=== PATIENT | male | born 1960 | race Caucasian/White ===

== ENCOUNTER 2019-01-13 00:50 | Outpatient (CLI) | payer MEDICAID, SELFPAY ==
--- NOTE | 2019-01-13 14:58 | DI.MRI_ITS ---
EXAM: MR LUMBAR SPINE WO CLINICAL HISTORY: DORSALGIA M54.9. TECHNIQUE: Multiplanar multisequence MRI was performed. COMPARISON: No exams were available for comparison FINDINGS: The T12 L1 disc appears intact. There is a nerve root sheath cyst seen on the right side at T11-12. There is minimal bulging and partial disc desiccation of the L1-2 disc. There is mild concentric bulging of the L2-3 disc, which shows mild loss of height. There are mild f acet degenerative changes, combining to produce mild central canal stenosis and mild bilateral neural foraminal narrowing. At L3-4, there is marked narrowing of the disc space eccentric toward the right with endplate osteoph ytes and degenerative signal changes in the endplates. There are mild facet joint degenerative evans es, which combine with the disc osteophytes to produce moderate bilateral neural foraminal narrowing. At L4-5, there is marked loss of disc height and small endplate osteophytes and mild concentric disc bulging. There are moderate facet degenerative changes and ligamentous hypertrophy, which combine to produce mild central canal stenosis with bilateral neural foraminal narrowing. At L5-S1, there is marked loss of disc height eccentric toward the left. There is a tiny right parac entral disc protrusion without definite impingement on nerve roots. There are facet degenerative arianne nges, also greater on the left side, causing moderate to severe bilateral neural foraminal narrowing. There is no significant central canal stenosis. The conus medullaris appears intact. The aorta is normal in diameter. There is some red marrow sumit nversion. IMPRESSION: Degenerative disc changes and facet degenerative changes combine to produce mild central canal stenos is at L2-3 and L4-5. Bilateral neural foraminal narrowing is seen at multiple levels, greatest at L5 -S1. A tiny focal right paracentral disc protrusion is seen at L5-S1 without definite nerve root imp ingement.
== END 2019-01-13 01:10 ==
PROVIDERS: PCP General Practice; Visit Provider General Practice
DX: M54.5 Low back pain (principal); M51.37 Other intervertebral disc degeneration, lumbosacral region; M48.07 Spinal stenosis, lumbosacral region
CPT/HCPCS: 72148

== ENCOUNTER 2019-11-29 03:36 | Observation (INO) | payer MEDICAID, SELFPAY ==
[2019-11-29] VITALS (39 sets, daily range): BP systolic 117–157; BP diastolic 79–103; PULSE 76–103; RESP 11–23; TEMP 35.8–36.8; O2SAT 89–98
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
--- NOTE | 2019-11-29 04:00 | DI.RAD_ITS ---
EXAM: XR PORTABLE CHEST AP CLINICAL HISTORY: cough TECHNIQUE: 2D digital imaging was performed. COMPARISON: CR CHEST 2 VIEWS PA,LAT from 03/18/2016 FINDINGS: LUNGS: Clear. No pleural abnormality seen. HEART: Normal. MEDIASTINUM: Normal. OTHER FINDINGS: None. IMPRESSION: No acute pulmonary findings. DATA REPOSITORY: RADIATION DOSE DELIVERED:
[2019-11-29] MEDS: LORazepam 2 MG/ML VIAL 0.5 MG IVP ×2 (04:32→05:07)
[2019-11-29] MEDS: Dexamethasone 4 MG/ML VIAL IVP (04:33)
[2019-11-29 04:34] LABS: Abs Immature Grans 0.09 10^3/uL (0.0-0.06); Absolute Basophil Count 0.05 10^3/uL (0.0-0.2); Absolute Eosinophil Count 0.05 10^3/uL (0.0-0.7); Absolute Lymphocyte Count 1.79 10^3/uL (1.2-3.4); Basophils % 0.4; Eosinophils % 0.4; HCT 44.1 % (40.0-50.0); HGB 15.9 g/dL (13.5-17.5); Immature Grans % 0.8; Lymphocytes % 15.8; MCH 36.1 pg (27.0-33.0); MCHC 36.1 % (32.0-36.0); MPV 11.2 fL (8.0-11.0); Monocytes % 10.9; Neutrophils % 71.7; Nucleated RBC 0 %; Platelet Count 227 10^3/uL (130-400); RBC 4.41 10^6/uL (4.36-5.78); RDW 11.2 % (11.8-14.1); RDW-SD 41.1 fL; WBC 11.33 10^3/uL (4.4-10.8)
[2019-11-29 04:42] LABS: Anion Gap 15.2 mmol/L (3-11); BUN 10 mg/dL (7-18); CO2 21.8 mmol/L (21.0-32.0); CREATININE 0.91 mg/dL (0.70-1.30); Chloride 93 mmol/L (98-107); Glucose 128 mg/dL (74-106); Potassium 3.7 mmol/L (3.5-5.1); Sodium 130 mmol/L (136-145)
[2019-11-29 04:43] LABS: Absolute Monocyte Count 1.23 10^3/uL (0.1-0.8); Absolute Neutrophil Count 8.12 10^3/uL (1.2-6.7)
--- NOTE | 2019-11-29 04:46 | DI.VRAD_ITS ---
PROCEDURE INFORMATION: Exam: XR Chest, 1 View Exam date and time: 11/29/2019 4:28 AM Age: 59 years old Clinical indication: Cough TECHNIQUE: Imaging protocol: XR of the chest Views: 1 view. COMPARISON: CR CHEST 2 VIEWS PA,LAT 03/18/2016 10:14 AM FINDINGS: Lungs: Lungs well inflated. No consolidation. Pleural space: Unremarkable. No pleural effusion. No pneumothorax. Heart/Mediastinum: Unremarkable. No cardiomegaly. Bones/joints: Prior cervical spine surgery. IMPRESSION: No acute findings. Dictated and Authenticated by: Dion Terrell MD. Ordering:BELLA Rust MD
--- NOTE | 2019-11-29 04:53 | NUR.NOTE ---
Nursing Note: Patient reports woke up with right tongue swelling. Called contact lens assistant physician and was instructed to come to ER if there was difficulty swallowing. Patient reports has been vomiting due to build up of phlegm aggravating throat.
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
[2019-11-29 05:52] LABS: TSH (W/Ref FT4) 2.33 uIU/mL (0.36-3.74)
--- NOTE | 2019-11-29 08:12 | W.PM.PROGNOT ---
Subjective Subjective Interval history since last seen: no n/v since last night. Voice is still slightly different. A&Ox3, anxious. Pupiles are reacting. 88% when dosing off (?real). No UOP yet. Feels better. Objective Last Vital Signs Temp 36.1 C L 11/29/19 06:04 Pulse 94 H 11/29/19 06:04 Resp 17 11/29/19 06:04 BP 150/96 H 11/29/19 06:04 Pulse Ox 95 11/29/19 06:04 Laboratory Results - last 24 hr 11/29/19 11/29/19 11/29/19 04:20 04:20 04:20 WBC 11.33 H RBC 4.41 Hgb 15.9 Hct 44.1 MCV 100.0 H MCH 36.1 H MCHC 36.1 H RDW 11.2 L Plt Count 227 MPV 11.2 H Immature Gran % 0.8 Neutrophils % 71.7 Lymphocytes % 15.8 Monocytes % 10.9 Eosinophils % 0.4 Basophils % 0.4 Nucleated RBC % 0 Absolute Neutrophils 8.12 H Absolute Lymphocytes 1.79 Absolute Monocytes 1.23 H Absolute Eosinophils 0.05 Absolute Basophils 0.05 Sodium 130 L Potassium 3.7 Chloride 93 L Carbon Dioxide 21.8 Anion Gap 15.2 H BUN 10 Creatinine 0.91 Estimated GFR/1.73 m2 >= 60.00 Glucose 128 H Calcium 9.0 TSH 2.33 Ethyl Alcohol 11/29/19 04:20 WBC RBC Hgb Hct MCV MCH MCHC RDW Plt Count MPV Immature Gran % Neutrophils % Lymphocytes % Monocytes % Eosinophils % Basophils % Nucleated RBC % Absolute Neutrophils Absolute Lymphocytes Absolute Monocytes Absolute Eosinophils Absolute Basophils Sodium Potassium Chloride Carbon Dioxide Anion Gap BUN Creatinine Estimated GFR/1.73 m2 Glucose Calcium TSH Ethyl Alcohol 9.0
[2019-11-29] MEDS: Apixaban 2.5 MG TAB PO (08:27)
[2019-11-29] MEDS: Atenolol 50 MG TAB PO (08:27)
[2019-11-29] MEDS: amLODIPine 10 MG TAB PO (08:28)
[2019-11-29] MEDS: Normal Saline 1,000 ML 150 ML IV (08:33)
[2019-11-29] MEDS: Normal Saline Flush 10 ML SYR IVP (08:33)
[2019-11-29] MEDS: MAGNESIUM SULFATE 2 GM/50 ML BAG IVPB ×2 (08:33→11:17)
[2019-11-29] MEDS: THIAMINE 100 MG in Normal Saline 100 ML 200 MG IVPB (09:17)
--- NOTE | 2019-11-29 09:43 | W.SPSTP ---
Date of service: 11/29/19 Time of Service: 09:43 Subjective MEDIA RELATIONS DIRECTOR spoke with MICHAEL Camara regarding swallow eval orders. She reports pts swelling has improved and he is managing a regular texture diet without issue. She states Dr. Estrada would like to hold off on swallow evaluation at this time. They will notify MEDIA RELATIONS DIRECTOR if needs change.
[2019-11-29 09:55] LABS: ALT 89 U/L (16-63); AST 67 U/L (15-37); Alkaline Phosphatase 70 U/L (46-116); Anion Gap 11.3 mmol/L (3-11); BUN 11 mg/dL (7-18); Bilirubin, Total 1.9 mg/dL (0.2-1.0); CO2 23.7 mmol/L (21.0-32.0); CREATININE 0.85 mg/dL (0.70-1.30); Calcium 8.7 mg/dL (8.5-10.1); Chloride 93 mmol/L (98-107); Glucose 132 mg/dL (74-106); Magnesium 1.1 mg/dL (1.8-2.4); Potassium 4.6 mmol/L (3.5-5.1); Sodium 128 mmol/L (136-145); Total Protein 7.4 g/dL (6.4-8.2)
[2019-11-29 10:07] LABS: C-Reactive Protein 1.35 mg/dL (0.0-0.3)
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
[2019-11-29 11:08] LABS: ESR 7 mm/hr (1-20)
[2019-11-29] MEDS: cefTRIAXone 1 GM/50 ML BAG IVPB (11:36)
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
[2019-11-29 15:03] LABS: COVID-19 RT-PCR UVMMC Result Negative (Negative)
[2019-11-30 09:19] LABS: C4 Complement 34 mg/dL (13-39)
== END 2019-11-29 13:52 | disposition home or self-care (01) ==
LOC: ER 05:18 → ICU 05:46
PROVIDERS: Admitting Provider Family Medicine; Emergency Provider Emergency Medicine; PCP Family Medicine; Visit Provider Family Medicine
DX: T78.3XXA Angioneurotic edema, initial encounter (principal); T46.4X5A Adverse effect of angiotensin-converting-enzyme inhibitors, initial encounter; I10 Essential (primary) hypertension; J02.0 Streptococcal pharyngitis; E83.42 Hypomagnesemia; E87.1 Hypo-osmolality and hyponatremia; Z79.01 Long term (current) use of anticoagulants; Z86.718 Personal history of other venous thrombosis and embolism; M54.9 Dorsalgia, unspecified; G89.29 Other chronic pain; Z79.899 Other long term (current) drug therapy; F10.10 Alcohol abuse, uncomplicated
CPT/HCPCS: 36415; 80048; 80053; 85652; 96374; 96375; 96376; 99217; 99220; 99285; U0003; 71045; 80320; 83735; 84443; 85025; 86140; 86160; 87081; 99236; G0378; J0696; J1100; J2060